=== PATIENT | female | born 2000 | race Two or more races ===

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

== ENCOUNTER 2022-04-18 06:12 | Inpatient (IN) ==
[2022-04-18] MEDS ORDERED: LR 1,000 ML IV 1,000 ML IV ONE ×2 (06:23→07:41)
[2022-04-18] MEDS ORDERED: ANCEF VIAL 1 GRAM ONE (06:23)
[2022-04-18] MEDS ORDERED: NS 100 ML IV 100 ML ONE (06:23)
[2022-04-18] MEDS ORDERED: D5 1/2 NS 1,000 ML 1,000 ML IV SCH (06:34)
[2022-04-18] MEDS ORDERED: ANCEF VIAL 1 GRAM IVP ONE (06:34)
[2022-04-18] MEDS ORDERED: DILAUDID INJ ONE (07:17)
[2022-04-18] MEDS ORDERED: VERSED ONE ×2 (07:17→08:21)
[2022-04-18] MEDS ORDERED: MARCAINE SPINAL ONE (07:19)
[2022-04-18] MEDS ORDERED: EPHEDRINE SULFATE INJ ONE (07:34)
[2022-04-18] MEDS ORDERED: DIPRIVAN VIAL 20 ML ONE (08:19)
[2022-04-18] MEDS ORDERED: BENADRYL INJ 50 MG VIAL IVP PRN ×2 (08:47→09:13)
[2022-04-18] MEDS ORDERED: ZOFRAN INJ 4 MG VIAL IVP PRN ×2 (08:47→09:13)
[2022-04-18] MEDS ORDERED: BARHEMSYS INJ IVP PRN (08:47)
[2022-04-18] MEDS ORDERED: REGLAN INJ 10 MG VIAL IVP PRN ×2 (08:47→09:13)
[2022-04-18] MEDS ORDERED: PHENERGAN INJ 25 MG IM PRN (08:47)
[2022-04-18] MEDS ORDERED: PERCOCET TAB 5/325 MG PO PRN (09:13)
[2022-04-18] MEDS ORDERED: TORADOL 30 MG VIAL IVP PRN (09:13)
[2022-04-18] MEDS ORDERED: NARCAN INJ IVP PRN (09:13)
[2022-04-18] MEDS ORDERED: D5 1/2 NS 1,000 ML 1,000 ML with PITOCIN 20 UNITS IV SCH ×2 (09:13)
[2022-04-18] MEDS ORDERED: ADACEL or BOOSTRIX TDaP VACCINE IM ONE (09:13)
[2022-04-18] MEDS ORDERED: MYLICON TAB 80 MG CHEW PO PRN (09:13)
[2022-04-18] MEDS: PRENATAL PLUS PO SCH (10:48)
[2022-04-19 05:07] LABS: HEMATOCRIT 31.8 % (36.0-47.0); HEMOGLOBIN 11.4 g/dL (12.0-16.0)
[2022-04-19] MEDS ORDERED: DEPO-PROVERA CONTRACEPTIVE INJ IM ONE (06:21)
[2022-04-19] MEDS ORDERED: PERCOCET TAB 5/325 MG PO PRN (06:21)
[2022-04-19] MEDS ORDERED: MOTRIN TAB 800 MG PO PRN (06:21)
[2022-04-19] MEDS: BACTROBAN TOPICAL OINT TOP SCH ×2 (08:32→13:00)
[2022-04-19] MEDS: PRENATAL PLUS PO SCH (08:33)
[2022-04-19] MEDS ORDERED: DEPO-PROVERA CONTRACEPTIVE INJ IM NR (09:00)
[2022-04-19] MEDS ORDERED: COLACE CAP 100 MG PO SCH (09:00)
[2022-04-19 11:20] VITALS: BP 103/59
== END 2022-04-19 13:30 | disposition home or self-care (01) | DRG 788 ==
LOC: LD 06:12 → MED/SURG 09:13
PROVIDERS: ADMIT Specialist; ATTEND Specialist
DX: O34.211 Maternal care for low transverse scar from previous cesarean delivery; N85.8 Other specified noninflammatory disorders of uterus; Z01.812 Encounter for preprocedural laboratory examination; Z3A.39 39 weeks gestation of pregnancy; Z01.818 Encounter for other preprocedural examination; Z20.822 Contact with and (suspected) exposure to COVID-19; Z37.0 Single live birth